=== PATIENT | female | born 1995 | race Caucasian/White ===

== ENCOUNTER 2016-08-18 11:06 | Emergency (ER) | payer SELFPAY ==
[~2016-08-18] VITALS: Ht 160 cm; Wt 54.4 kg
[2016-08-18 11:57] VITALS: BP 104/71
[2016-08-18] MEDS ORDERED: ONDANSETRON ODT 4 MG TAB.RAPDIS PO ONE (12:00)
[2016-08-18] MEDS ORDERED: LORazepam 1 MG TABLET PO ONE (12:00)
--- NOTE | 2016-08-18 15:52 | ED.ADGEN ---
Past History Past Medical History: GERD Past Surgical History: No Surgical History Alcohol Use: None Drug Use: Marijuana Adult General Chief Complaint Chief Complaint Anxiety state HPI HPI Patient is a history of chronic anxiety presents with cramping at times. She feels anxious with time and is currently without her anxiety medications. Patient recently relocated from [place] has not had a kidney stones for her care physician. She reports overwhelming feelings of anxiety, panic, chest tightness, nausea and vomiting. Patient states she's been very anxious since last evening. She reports social stressors is likely causes including staying with family members. She denies HI or SI and drug use. Review of Systems Review of Systems ROS as per HPI Current Medications Current Medications Current Medications Medications (Trade) Dose Ordered Sig/Cony Start Time Stop Time Status Last Admin Dose Admin Lorazepam (Ativan) 2 mg 1X ONCE 08/18/16 12:00 08/18/16 12:01 DC 08/18/16 11:52 2 MG Ondansetron HCl (Zofran Odt) 4 mg 1X ONCE 08/18/16 12:00 08/18/16 12:01 DC 08/18/16 11:51 4 MG Allergies Allergies Allergies Coded Allergies Type Severity Reaction Last Updated Verified quetiapine Allergy Intermediate rash 08/18/16 Yes cephalexin Allergy Unknown 08/18/16 Yes Physical Exam Physical Exam Constitutional: Well developed, well nourished, no acute distress. HENT: Normocephalic, atraumatic, bilateral external ears normal, oropharynx moist, no oral exudates, nose normal. Eyes: PERRLA, EOMI, conjunctiva normal. Neck: Normal range of motion, no tenderness, supple. Cardiovascular:Heart rate regular rhythm, no murmur. Lungs & Thorax: Bilateral breath sounds clear to auscultation. Abdomen: Bowel sounds normal, soft, no tenderness. Skin: Warm. Back: No tenderness. Extremities: No tenderness. Neurologic: Alert and oriented X 3, normal motor function, normal sensory function, no focal deficits noted. Psychologic: Affect normal, judgement normal, mood normal. Current Patient Data Vital Signs Vital Signs Date Time Temp Pulse Resp B/P (MAP) Pulse Ox O2 Delivery O2 Flow Rate FiO2 08/18/16 11:57 86 20 104/71 (82) 97 Room Air 08/18/16 11:06 97.7 EKG EKG [] Radiology/Procedures Radiology/Procedures [] Course & Med Decision Making Course & Med Decision Making Pertinent Labs and Imaging studies reviewed. (See chart for details) [Ativan given. Patient referred to mental health resources in the community. ] Final Impression Final Impression [1. anxiety state] Problems: Dragon Disclaimer Dragon Disclaimer This electronic medical record was generated, in whole or in part, using a voice recognition dictation system. JUANA CAMARILLO DO Aug 18, 2016 15:52
== END 2016-08-18 12:10 | disposition home or self-care (01) ==
LOC: ER 11:06
DX: F41.1 Generalized anxiety disorder (principal); K21.9 Gastro-esophageal reflux disease without esophagitis; F12.10 Cannabis abuse, uncomplicated; Z88.1 Allergy status to other antibiotic agents; Z88.8 Allergy status to other drugs, medicaments and biological substances
CPT/HCPCS: 99284; Q0162